=== PATIENT | male | born 1985 | race Two or more races ===

== ENCOUNTER 2018-04-19 04:33 | Outpatient (CLI) | payer MEDICAID | END 2018-04-19 04:34 | disposition critical access hospital (66) | LOC: EMS 04:33 | PROVIDERS: ATTEND Surgery | DX: R41.82 Altered mental status, unspecified (principal); V58.5XXA Driver of pick-up truck or van injured in noncollision transport accident in traffic accident, initial encounter; Y92.414 Local residential or business street as the place of occurrence of the external cause | CPT/HCPCS: A0425; A0429; A0999 ==

== ENCOUNTER 2018-04-19 04:59 | Emergency (ER) | payer OTHER, MEDICAID ==
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
[2018-04-19 06:15] LABS: BASOPHILS % (AUTO) 0.3 %; EOSINOPHILS % (AUTO) 0.2 %; HGB - HEMOGLOBIN 17.5 g/dL (14.0-18.0); LYMPHOCYTES # (AUTO) 0.9 10^3/uL (1.5-3.5); LYMPHOCYTES % (AUTO) 11.7 %; MEAN CORPUSCULAR HEMOGLOBIN 32.6 pg (27.0-31.0); MEAN CORPUSCULAR HGB CONC 34.9 g/dL (32.0-36.0); MEAN CORPUSCULAR VOLUME 93.5 fL (80.0-94.0); MEAN PLATELET VOLUME 8.5 fL (7.4-11.4); MONOCYTES # (AUTO) 0.5 10^3/uL (0.0-1.0); NEUTROPHILS # (AUTO) 6.5 10^3/uL (1.5-6.6); NEUTROPHILS % (AUTO) 81.8 %; PLT - PLATELET COUNT 227 10^3/uL (130-450); RED BLOOD COUNT 5.38 10^6/uL (4.70-6.10); RED CELL DISTRIBUTION WIDTH 12.6 % (12.0-15.0)
[2018-04-19 06:24] LABS: ACETAMINOPHEN < 10 ug/mL (10-30); BUN - BLOOD UREA NITROGEN 17 mg/dL (6-20); CALCIUM 9.3 mg/dL (8.5-10.3); CARBON DIOXIDE - CO2 25 mmol/L (21-32); CHLORIDE 98 mmol/L (101-111); CREATININE 0.9 mg/dL (0.6-1.2); GFR - MDRD 99 (>89); GLUCOSE 116 mg/dL (70-100); SALICYLATE < 6.0 mg/dL; SODIUM 135 mmol/L (135-145)
[2018-04-19 07:28] LABS: MUDS CUTOFF CONCENTRATIONS CUTOFF CONC BELOW:
[2018-04-19 07:34] LABS: BILIRUBIN,URINE NEGATIVE (NEGATIVE); GLUCOSE, URINE (UA) NEGATIVE (NEGATIVE); KETONES,URINE (UA) NEGATIVE (NEGATIVE); LEUKOCYTE ESTERASE, URINE NEGATIVE (NEGATIVE); NITRITE,URINE NEGATIVE (NEGATIVE); OCCULT BLOOD,URINE NEGATIVE (NEGATIVE); PH,URINE 5.5 PH (5.0-7.5); PROTEIN,URINE NEGATIVE (NEGATIVE); UROBILINOGEN,URINE 0.2 (NORMAL) E.U./dL (NORMAL)
[2018-04-19 07:35] LABS: CLARITY,URINE CLEAR (CLEAR)
[2018-04-19 07:47] LABS: AMPHETAMINE SCREEN,URINE NEGATIVE (NEGATIVE); BENZODIAZEPINES SCREEN, URINE NEGATIVE (NEGATIVE); COCAINE SCREEN URINE NEGATIVE (NEGATIVE); METHADONE SCREEN, URINE NEGATIVE (NEGATIVE); METHAMPHETAMINES SCREEN, URINE NEGATIVE (NEGATIVE); OPIATE SCREEN, URINE NEGATIVE (NEGATIVE); OXYCODONE SCREEN, URINE NEGATIVE (NEGATIVE); PROPOXYPHENE SCREEN, URINE NEGATIVE (NEGATIVE); TRICYCLIC ANTIDEPRESSANT,URINE NEGATIVE (NEGATIVE)
[2018-04-19] MEDS ORDERED: LORazepam 0.5 MG TABLET PO STA (15:44)
--- NOTE | 2018-04-19 18:54 | ED Physician Documentation ---
ED Addendum - Addendum Addendum: 04/19/18 18:52 The patient has remained calm and cooperative here in the ER today. He was seen by social work who attempted to achieve placement for acute psychosis and delusional disorder. They were subsequently able to find placement for voluntary inpatient psychiatric and the patient will be transferred by EMS. No problems encountered here. Final diagnosis: #1 acute psychosis #2 delusional disorder Disposition he is transferred to psychiatric facility in stable condition.
[2018-04-19 19:11] VITALS: BP 130/85
== END 2018-04-19 20:16 ==
LOC: EDUNIT# → ED 04:59
DX: F29 Unspecified psychosis not due to a substance or known physiological condition (principal); F22 Delusional disorders; F41.9 Anxiety disorder, unspecified; S40.811A Abrasion of right upper arm, initial encounter; V89.2XXA Person injured in unspecified motor-vehicle accident, traffic, initial encounter; Y92.89 Other specified places as the place of occurrence of the external cause
CPT/HCPCS: 36415; 80048; 80306; 80307; 80320; 80329; 81003; 84443; 85025; 99284; A9270; 81001; 87086